=== PATIENT | female | born 1940 | race Caucasian/White ===

== ENCOUNTER 2021-11-22 10:51 | Emergency (ER) | payer MEDICARE, SELFPAY ==
--- NOTE | ~2021-11-22 | CT_ITS ---
EXAMINATION: CT brain wo con DATE: 11/22/2021 11:50 INDICATION: Head injury. TECHNIQUE: Computed tomography (CT) of the head was performed without intravenous contrast. The mA wa s adjusted according to patient size. Iterative reconstruction technique was employed. The dose-lengt h product was 605.33 mGy-cm. COMPARISON: None FINDINGS: There is no intracranial hemorrhage, acute infarction, or abnormal intracranial mass lesion . There are scattered areas of low attenuation in the cerebral white matter. The ventricles are cisco l in size. The orbits are normal. There is mild mucosal thickening in the paranasal sinuses. The mast oid air cells are normal. IMPRESSION: 1. Moderate nonspecific cerebral white matter disease, which likely represents chronic small vessel i schemic disease. Reviewed, dictated and finalized at location A. IMPRESSION: 1. Moderate nonspecific cerebral white matter disease, which likely represents chronic small vessel ischemic disease.
[2021-11-22 11:02] VITALS: BP 161/70; PULSE 79; RESP 20; TEMP 36.6; O2SAT 100
--- NOTE | 2021-11-22 11:48 | ED.FALL ---
HPI - Fall General Chief Complaint: Fall Stated Complaint: fell; hit head, no blood thinners Time Seen by Provider: 11/22/21 10:54 Source: RN notes reviewed History of Present Illness HPI Narrative: Patient presents to emergency department from home for a fall. Patient states that she was sitting down on her chair and the chair slipped out from under her causing her to fall backwards and hit the back of her head she states that she had bleeding at that time as well as pain and swelling she denies any loss of consciousness states she is not on any blood thinners she denies any other trauma or injury she denies any neck pain vision changes chest pain shortness of breath numbness or tingling in the extremities or any other symptoms of concern. Patient is unsure of last tetanus Related Data Allergies Allergy/AdvReac Type Severity Reaction Status Date / Time No Known Allergies Allergy Unknown Verified 11/22/21 11:15 Review of Systems Review of Systems: Gen.: Denies fevers or chills Eyes: Denies eye pain or visual change ENT: Denies congestion Respiratory: Denies shortness of breath or cough CV: Denies chest pain GI: Denies abdominal pain nausea, emesis Musculoskeletal: Denies back pain or muscle pain Neuro: Reports head Skin: Reports laceration Except as documented, all other systems reviewed and negative [facility] Past Medical History Medical History (Updated 11/22/21 @ 12:12 by Jonathan Powell DO) Hypertension Social History Social History (Updated 11/22/21 @ 11:50 by Jonathan Powell DO) Smoking status: Never smoker Exam Narrative: APPEARANCE: No acute distress, nontoxic, resting in bed EYES: EOMI, PERRL HEENT: Normocephalic, swelling ecchymosis over the left posterior superior scalp with laceration noted please see skin TMs clear bilaterally no facial tenderness Neck: Supple no midline tenderness palpation full range of motion without pain RESPIRATORY: No respiratory distress Clear to auscultation bilaterally with no rhonchi wheezing or rales. CARDIOVASCULAR: Regular rate and rhythm without murmurs rubs or gallops. ABDOMINAL: Soft, nontender, nondistended MUSCULOSKELETAl: Moves all extremities. No clubbing, cyanosis or edema. NEURO: Awake and alert x 4. Following commands, speech normal, no focal deficits SKIN:: Warm, dry. No rashes lesions or abrasions 2 cm vertical laceration of her left posterior scalp that is linear and deep with mild venous bleeding no foreign bodies PSYCHIATRIC: Normal affect/mood, Course Course Emergency Course: Discussed with patient results of workup and diagnosis. Discussed need for follow-up with primary care, proper use of medication, and reasons to return to the emergency department. Patient understands and agrees to current treatment plan Vital Signs Vital signs: Vital Signs Temperature 97.8 F 11/22/21 11:02 Pulse Rate 79 11/22/21 11:02 Respiratory Rate 20 11/22/21 11:02 Blood Pressure 161/70 H 11/22/21 11:02 Pulse Oximetry 100 11/22/21 11:02 Oxygen Delivery Room Air 11/22/21 11:02 Temperature 97.8 F 11/22/21 11:02 Pulse Rate 79 11/22/21 11:02 Respiratory Rate 20 11/22/21 11:02 Blood Pressure 161/70 H 11/22/21 11:02 Pulse Oximetry 100 11/22/21 11:02 Oxygen Delivery Room Air 11/22/21 11:02 Procedures Laceration Laceration 1: ====== Skin Level ====== ====== Subcutaneous Layer ====== ====== Muscle Layer ====== ====== Tendon Layer ====== Dressing: Verbal consent was obtained prior to the procedure. The wound was cleaned and irrigated with copious amounts of normal saline. Wound was explored is no foreign body seen. The wound was then closed with 3 rocío . Patient tolerated the procedure well MDM - Fall Imaging Data Radiologist's impression: ITS Impressions Head CT 11/22/21 11:53 IMPRESSION: 1. Moderate nonspecific cerebral white matter disease, which likely represents chronic small v
[2021-11-22] MEDS: TETANUS,DIPHTHERIA,AC PERTUSSIS ADULT (0.5 ML) BOOSTRIX IM (11:54)
== END 2021-11-22 12:25 | disposition home or self-care (01) ==
PROVIDERS: Emergency Provider Emergency Medicine; PCP Family Medicine
DX: S01.01XA Laceration without foreign body of scalp, initial encounter (principal); I10 Essential (primary) hypertension; W07.XXXA Fall from chair, initial encounter; Z23 Encounter for immunization
CPT/HCPCS: 12001; 70450; 90471; 90715; 99284

== ENCOUNTER 2021-12-02 07:51 | Inpatient (IN) | payer MEDICARE, SELFPAY ==
--- NOTE | ~2021-12-02 | US_ITS ---
EXAMINATION: US carotid duplex BI DATE: 12/02/2021 17:48 INDICATION: Dizziness TECHNIQUE: Grayscale, color Doppler, and pulsed Doppler images of the cervical carotid arteries were obtained. The degree of vessel stenosis is placed in one of the following categories: normal, <50%, 5 0-69%, >=70% but less than near-occlusion, near-occlusion, or total occlusion. Note that percent sten osis relative to normal distal artery lumen diameter is indirectly measured from velocity measurement s as described by Jeff, et al. Radiology 2003; 229:340-346. COMPARISON: None. FINDINGS: RIGHT: The right common carotid artery (CCA) peak systolic velocity (PSV) is 74 cm/s. The right internal car otid artery (ICA) PSV is 77 cm/s. The right ICA end-diastolic velocity (EDV) is 22 cm/s. The right IC A/CCA PSV ratio is 1.1. Grayscale and color Doppler images yield an estimate of <50% diameter reducti on from plaque in the ICA. The external carotid artery (ECA) PSV is 106 cm/s. There is antegrade flow in the right vertebral artery. LEFT: The left CCA PSV is 89 cm/s. The left ICA PSV is 64 cm/s. The left ICA EDV is 18 cm/s. The left ICA/C CA PSV ratio is 0.7. Grayscale and color Doppler images yield an estimate of <50% diameter reduction from plaque in the ICA. The ECA PSV is 76 cm/s. There is antegrade flow in the left vertebral artery. IMPRESSION: 1. <50% stenosis in the right internal carotid artery. 2. <50% stenosis in the left internal carotid artery. Reviewed, dictated and finalized at location A.
--- NOTE | ~2021-12-02 | US_ITS ---
EXAMINATION: US venous doppler [facility] DATE: 12/02/2021 17:34 INDICATION: Edema to the left lower extremity . TECHNIQUE: Grayscale images without and with compression and Doppler images of the left lower extremi ty veins were obtained. COMPARISON: None FINDINGS: The left common femoral vein, profunda femoral vein, femoral vein, popliteal vein, peroneal vein, pos terior tibial veins, and greater saphenous vein are patent. IMPRESSION: 1. Patent left lower extremity veins. No evidence of deep venous thrombosis. Reviewed, dictated and finalized at location K.
--- NOTE | ~2021-12-02 | MR_ITS ---
EXAMINATION: MR brain/brain stem wo/w con DATE: 12/02/2021 17:39 INDICATION: Dizziness TECHNIQUE: Magnetic resonance imaging (MRI) of the brain and brainstem was performed without and with 20 mL MultiHance intravenous contrast. Sequences included sagittal and axial T1-weighted SE, axial d iffusion-weighted FS EPI ASSET, axial T2*-weighted GRE, axial T2-weighted FLAIR Propeller, and axial T2-weighted Propeller. Postcontrast axial and coronal T1-weighted SE was obtained. Apparent diffusion coefficient (ADC) maps were created. COMPARISON: CT brain 12/02/2021. FINDINGS: No abnormal restricted diffusion to suggest acute ischemic infarct. No MRI evidence of hemorrhage or extra-axial collection. No suspicious foci of susceptibility to suggest prior intraparenchymal hemorr oxana. Mild chronic white matter change. Mild generalized parenchymal volume loss. Right maxillary ret ention cysts or polyps. No abnormal enhancement. Flow voids are preserved. Basilar cisterns patent. IMPRESSION: No acute intracranial process. Reviewed, dictated and finalized at location K.
--- NOTE | ~2021-12-02 | CT_ITS ---
EXAMINATION: CT brain wo con INDICATION: Vertigo and diffuse headache COMPARISON: None TECHNIQUE: Standard unenhanced head CT. The dose-length product (DLP) was 605.33 mGy-cm. The mA was a djusted according to patient size. Iterative reconstruction technique was employed. FINDINGS: There is no acute intraparenchymal hemorrhage. No evidence of mass lesion. No evidence of a cute infarction. There is mild periventricular and subcortical hypodensity probably related to small vessel ischemic disease. There is mild prominence of the sulci and ventricles related to cerebral atr ophy. Intracranial calcified cerebral atherosclerosis is noted. There are no extra-axial collections. There is no mass effect or midline shift. The orbits and soft tissues are unremarkable. There is mil d mucosal thickening of the paranasal sinuses. IMPRESSION: 1. No acute intracranial abnormality. 2. Age related findings. Reviewed, dictated and finalized at location B.
[2021-12-02 08:02] VITALS: BP 159/78; PULSE 70; RESP 20; TEMP 36.7; O2SAT 100
--- NOTE | 2021-12-02 08:08 | ECG_ITS ---
Measurements Intervals [place] Rate: 67 P: 36 ND: 175 QRS: 14 QRSD: 96 T: 15 QT: 394 QTc: 417 Interpretive Statements SINUS RHYTHM BASELINE ARTIFACT- I, III, AVR, AVL, AVF, V1-V2 NORMAL ECG NO PREVIOUS ECG AVAILABLE FOR COMPARISON Electronically Signed On 12-02-2021 8:18:49 CDT by Damon Harrell D.O.
--- NOTE | 2021-12-02 08:33 | ED.GENADULT ---
HPI - General Adult General Chief complaint: Dizziness Stated complaint: dizzy Time Seen by Provider: 12/02/21 08:21 History of Present Illness HPI narrative: 81-year-old female patient who has a history of hypothyroidism and hypertension.? The patient stated that she woke up this morning and felt very dizzy. Related Data Home Medications Medication Instructions Recorded Confirmed amlodipine 2.5 mg-benazepril 10 mg 2.5 cap PO HS 12/02/21 12/02/21 capsule levothyroxine 100 mcg tablet 100 mcg PO DAILY 12/02/21 12/02/21 omeprazole 20 mg capsule,delayed 20 mg PO DAILY 12/02/21 12/02/21 release Allergies Allergy/AdvReac Type Severity Reaction Status Date / Time No Known Allergies Allergy Unknown Verified 12/02/21 08:09 Review of Systems Review of Systems: CONSTITUTIONAL: Denies fever, chills, or sweats. EYES: Denies visual changes, redness, or discharge. ENT: Denies rhinorrhea, congestion, sore throat, or otalgia. CARDIOVASCULAR: Denies chest pain, palpitations, or edema. RESPIRATORY: Denies cough or dyspnea. GASTROINTESTINAL: Denies abdominal pain, nausea, vomiting, or diarrhea. GENITOURINARY: Denies dysuria or hematuria. SKIN: Denies rash or itching. MUSCULOSKELETAL: Denies back pain, joint pain, or myalgia. NEUROLOGIC: Denies headache, numbness, or weakness. PSYCHIATRIC: Denies anxiety or depression. [facility] Past Medical History Medical History (Updated 12/03/21 @ 14:46 by Stephy Virgen APRN) Chronic GERD Endometrial cancer Fibrocystic breast Hypertension Hypothyroidism LUI on CPAP Uterine cancer Surgical History Surgical History H/O hysterectomy for benign disease H/O lumpectomy H/O tubal ligation Family History Family History Sibling Arthritis, rheumatoid Mother Hypertension Father Osteoarthritis Alzheimer disease Sibling Cerebrovascular accident Sibling Heart disease Social History Social History (Updated 12/02/21 @ 15:26 by Iza Lau NP) Social History: The patient is and has 3 daughters. Her daughters bernice and aliyah are her power defense attorney. She is retired from the [employer]. Lifelong nonsmoker. Does not use any alcohol marijuana or illicit drugs. Code status full code Smoking status: Never smoker Alcohol intake: never Substance use: never Spiritual care concerns: No Course Vital Signs Vital signs: Vital Signs Temperature 98.1 F 12/02/21 08:02 Pulse Rate 70 12/02/21 08:02 Respiratory Rate 20 12/02/21 08:02 Blood Pressure 159/78 H 12/02/21 08:02 Pulse Oximetry 100 12/02/21 08:02 Oxygen Delivery Room Air 12/02/21 08:02 Temperature 97.2 F L 12/04/21 06:00 Pulse Rate 71 12/04/21 06:00 Respiratory Rate 18 12/04/21 06:00 Blood Pressure 130/65 12/04/21 06:00 Pulse Oximetry 98 12/04/21 09:44 Oxygen Delivery Room Air 12/04/21 09:44 Medical Decision Making MDM Narrative Medical decision making narrative: IMPRESSION: 1. Moderate nonspecific cerebral white matter disease, which likely represents chronic small vessel ischemic disease. Vital Signs Vital Signs: Vital Signs Temperature 98.1 F 12/02/21 08:02 Pulse Rate 70 12/02/21 08:02 Respiratory Rate 20 12/02/21 08:02 Blood Pressure 159/78 H 12/02/21 08:02 Pulse Oximetry 100 12/02/21 08:02 Oxygen Delivery Room Air 12/02/21 08:02 Temperature 97.2 F L 12/04/21 06:00 Pulse Rate 71 12/04/21 06:00 Respiratory Rate 18 12/04/21 06:00 Blood Pressure 130/65 12/04/21 06:00 Pulse Oximetry 98 12/04/21 09:44 Oxygen Delivery Room Air 12/04/21 09:44 Lab Data Result diagrams: 12/03/21 06:10 12/03/21 06:10 Labs: Lab Results 12/02/21 12/02/21 12/02/21 Range/Units 08:13 08:13 17:48 WBC 5.0 (4.5-10.0) K/mm3 RBC 4.65 (4.2-5.4) M/mm3 Hgb 14.1 (1
[2021-12-02 08:38] VITALS: BP 152/81; PULSE 80; RESP 20; O2SAT 100
[2021-12-02] MEDS: MECLIZINE HCL 25 MG TABLET PO (08:39)
[2021-12-02 08:46] LABS: Basophils Percent Auto 0.4 % (0.2-1.2); Eosinophils Absolute Auto 0.1 K/mm3 (0-0.3); Eosinophils Percent Auto 1.8 % (0-4.4); Hematocrit 42.4 % (37.0-47.0); Hemoglobin 14.1 g/dL (12.0-15.0); Immature Granulocyte Absolute 0.01 K/mm3 (0.00-0.031); Immature Granulocyte Percent A 0.2 % (0-0.5); Lymphocytes Absolute Auto 1.49 K/mm3 (0.9-3.2); Lymphocytes Percent Auto 29.6 % (18.3-44.2); Mean Corpuscular HGB Conc 33.3 g/dl (32-36); Mean Corpuscular Hemoglobin 30.3 pg (26-34); Mean Corpuscular Volume 91.2 fl (80-100); Monocytes Absolute Auto 0.5 K/mm3 (0.1-0.6); Monocytes Percent Auto 9.9 % (2.6-8.5); Neutrophils Absolute Auto 2.9 K/mm3 (1.3-6.7); Neutrophils Percent Auto 58.1 % (45.5-73.1); Platelet Count Result 269 k/mm3 (150-375); Red Blood Count 4.65 M/mm3 (4.2-5.4); Red Cell Distribution Width 13.9 % (11.5-14.5)
[2021-12-02 08:55] LABS: Alanine Aminotransferase 20 U/L (6-35); Albumin Level 4.3 g/dL (3.5-5.1); Alkaline Phosphatase 86 U/L (38-126); Anion Gap 13 mmol/L (8-16); Aspartate Amino Transferase 26 U/L (14-36); Bilirubin,Total 0.9 mg/dL (0.2-1.3); Blood Urea Nitrogen 17 mg/dL (7-17); Calcium 9.7 mg/dL (8.4-10.2); Carbon Dioxide 25 mmol/L (22-30); Chloride 102 mmol/L (98-107); Estimated CRCL calculation 66 ml/min; Estimated Glomerular Filt Rate > 60; Glucose 107 mg/dL (65-110); Potassium 4.2 mmol/L (3.4-5.0); Sodium 140 mmol/L (137-145)
--- NOTE | 2021-12-02 09:10 | PC.NURSE ---
pt states she is unable to lay flat for the CT scan. She states she is too dizzy. EDP made aware.
[2021-12-02] MEDS: LORazepam INJ (*CRX) 2 MG/ML VIAL 0.5 MG IV PUSH (09:21)
[2021-12-02 10:43] VITALS: PULSE 73; RESP 18; O2SAT 96
--- NOTE | 2021-12-02 13:16 | PM.IMHP ---
H&P: HPI History of Present Illness Date/Time: 12/02/21 13:16 Chief Complaint: Dizziness Narrative: This is a 81-year-old female patient who has a history of hypothyroidism and hypertension. The patient stated that she woke up this morning and felt very dizzy. She was also nauseated. The patient stated it felt like something hit her on the side of the left head and she fell back into the bed when she was attempting to get up. The patient stated that the only new medicine she took was Senokot and Dulcolax tablets for constipation. She denies having any watery stools. She stated she had small bowel movement that was solid but no loose stools. She felt nauseated but did not vomit. Her lab work was unremarkable. Head CT was read as no acute intracranial abnormality. Age-related findings. The patient was given Antivert, Ativan and IV fluids without any resolution of her symptoms. The patient stated that she attempted to sit on the side of bed in the emergency room to get up to go to the bathroom and she felt dizzy and had to lay back down. She was not able to ambulate. The patient is being admitted for observation status on the date of service of 12/02/2021. Review of Systems Review of Systems: See HPI All systems reviewed & are unremarkable except as noted in HPI and below Constitutional: Constitutional: Reports as per HPI and Reports no additional constitutional complaints Eyes: Eyes: Reports as per HPI and Reports no additional eye complaints ENT: Reports system reviewed and no additional complaints, except as documented and Reports Normal hearing present Cardiovascular: Cardiovascular: Reports no additional cardiovascular complaints Respiratory: Respiratory: Reports no additional respiratory complaints and Reports no additional respiratory complaints Gastrointestinal: Gastrointestinal: Reports as per HPI and Reports no additional gastrointestinal complaints Musculoskeletal: Musculoskeletal: Reports no additional musculoskeletal complaints Integumentary/Breasts: Skin/Breast: Reports system reviewed and no additional complaints, except as docu and Reports as per HPI Neurologic: Reports system reviewed and no additional complaints, except as documented, Reports as per HPI and Reports Normal hearing present Psychiatric: Psychiatric: Reports no additional psychiatric complaints and Reports as per HPI Endocrine: Endocrine: Reports no additional endocrine complaints Hematologic/Lymphatic: Hematologic/Lymphatic: Reports no additional hematologic/lymphatic complaints Allergic/Immunologic: Allergic/Immunologic: Reports no additional allergic/immunologic complaints [facility] Past Medical History Medical History (Updated 12/02/21 @ 15:24 by Iza Lau NP) Chronic GERD Endometrial cancer Fibrocystic breast Hypertension Hypothyroidism LUI on CPAP Uterine cancer Surgical History Surgical History H/O hysterectomy for benign disease H/O lumpectomy H/O tubal ligation Family History Family History (Updated 12/02/21 @ 15:25 by Iza Lau NP) Sibling Arthritis, rheumatoid Mother Hypertension Father Osteoarthritis Alzheimer disease Sibling Cerebrovascular accident Sibling Heart disease Social History Social History (Updated 12/02/21 @ 15:26 by Iza Lau NP) Social History: The patient is and has 3 daughters. Her daughters bernice and aliyah are her power slurry control tender. She is retired from the [employer]. Lifelong nonsmoker. Does not use any alcohol marijuana or illicit drugs. Code status full code Smoking status: Never smoker Alcohol intake: never Substance use: never Spiritual care concerns: No Meds Home Medications and Allergies Home Medications Medication Instructions Recorded Confirmed Type amlodipine 2.5 mg-benazepril 10 mg 2.5 cap PO HS 12/02/21 12/02/21 History capsule levothyroxine 100 m
[2021-12-02 14:20] VITALS: BP 132/64; PULSE 74; RESP 18; TEMP 36.9; O2SAT 100
[2021-12-02 15:13] VITALS: BMI 37.6
--- NOTE | 2021-12-02 15:26 | ADMGEN ---
This patient, Elsa Randolph, was admitted to 3 Med Surg Room 316-01. Patient/family oriented to hospital policies and general routines including ID bracelet, bed and alarms, visiting hours, pain management, procedures, bathroom and other care routines, personal items, smoking policy, room service/diet, and visiting hours. Information on how to activate the Rapid Response Team has been discussed. Patient/Family are encouraged to report perceived risks to care and to ask questions if they do not understand what they are told or what they should do.
[2021-12-02] MEDS: SODIUM CHLORIDE 0.9% IV 250 ML 75 ML IV CONT (15:48)
[2021-12-02] MEDS: MECLIZINE HCL 12.5 MG TABLET PO ×2 (16:58→21:41)
[2021-12-02] MEDS: LORazepam (*CRX) 0.5 MG TABLET PO (16:58)
[2021-12-02] MEDS: ONDANSETRON INJ 4 MG/2 ML VIAL IV PUSH (18:03)
[2021-12-02 18:07] LABS: Appearance Urine Clear (Clear); Bilirubin Urine Negative (Negative); Color Urine Yellow (Yellow); Glucose Urine UA Negative (Negative); Ketones Urine Negative (Negative); Leukocyte Esterase Ur 1+ LEU/UL (NEGATIVE); Nitrate Urine Negative (Negative); Protein Urine Negative (Negative); Specific Grav Ur 1.015 (1.001-1.035); Urobilinogen Urine 0.2 mg/dL (<2.0)
[2021-12-02 18:24] LABS: Mucus Urine Rare /lpf; RBC Urine 0-2 /hpf (0-2); Squamous Epithelial Cell Urine Rare /hpf (Few); WBC Urine 0-3 /hpf (0-3)
[2021-12-02 18:33] LABS: SARS-CoV-2 RNA PCR Negative
[2021-12-02 18:39] LABS: Add Urine Microscopic? YES; Blood Urine Trace-Intact (Negative)
[2021-12-02 20:00] VITALS: BP 145/63; PULSE 58; RESP 16; TEMP 36.4
[2021-12-02 21:54] VITALS: BP 145/63; PULSE 58; RESP 18; TEMP 36.4; O2SAT 97
[2021-12-02] MEDS: amLODIPine BESYLATE 2.5 MG TABLET BY MOUTH (22:41)
[2021-12-02] MEDS: lisinopriL 10 MG TABLET BY MOUTH (22:41)
[2021-12-03] VITALS (7 sets, daily range): BP systolic 124–149; BP diastolic 56–76; PULSE 62–79; RESP 18–20; TEMP 36.1–36.7; O2SAT 98–99
--- NOTE | 2021-12-03 | ECHO_ITS ---
Patient Info Name: Elsa Randolph Age: 81 years : 1940 Gender: Female Ht: 65 in Wt: 226 lbs BSA: 2.22 m2 HR: 64 bpm BP: 149 / 76 mmHg Heart Rhythm: Sinus Rhythm Technical Quality: Fair Exam Date: 12/03/2021 11:31 AM Exam Location: [facility] Patient Status: Outpatient Admit Date: 12/02/2021 Staff Ordering Physician: Stephy Virgen APRN [employer] Estimator: Willa Cox RDCS Attending Provider: Pravin Bruce MD Referring Physician: Promise SUAZO; Exam Type: CA echo doppler w bubble study Study Info Indications - POSSIBLE TIA R42 - Dizziness and giddiness Complete two-dimensional, color flow and Doppler transthoracic echocardiogram is performed with agitated saline. Contrast/Agitated Saline Contrast/Ag. Saline: Agitated Saline Amount: 20.00 ml Administered By: Caro Messina RDCS Existing IV Access: Yes IV Access Condition: patent with no signs of infiltration Summary 1. Left ventricular systolic function is normal, estimated at 70%. 2. E/e' 14.0 is mildly elevated. 3. No evidence for [id number]-[id number] shunt with injection of agitated saline with or without Valsalva. 4. Left ventricular chamber dimension is mildly enlarged. 5. There is moderately increased left ventricular wall thickness. 6. The left ventricular diastolic function is grade I diastolic dysfunction. 7. Global longitudinal strain is normal at -19 %. 8. Left atrial chamber dimension is moderately enlarged. 9. There is trace tricuspid valve regurgitation. 10. Mild pulmonary hypertension, estimated pulmonary arterial systolic pressure is 35 mmHg. Recommendations * Consider transesophageal echocardiogram if clinically indicated. Left Ventricle Left ventricular systolic function is normal, estimated at 70%. E/e' 14.0 is mildly elevated. Left ventricular chamber dimension is mildly enlarged. There is moderately increased left ventricular wall thickness. The left ventricular diastolic function is grade I diastolic dysfunction. Global longitudinal strain is normal at -19 %. Right Ventricle Right ventricular chamber dimension is normal. Right ventricular systolic function is normal. Left Atria Left atrial chamber dimension is moderately enlarged. Right Atria Right atrial chamber dimension is normal. Atrial Septum No evidence for [id number] shunt with injection of agitated saline with or without Valsalva. Aortic Valve The aortic valve is not well visualized. There is no aortic valve stenosis. There is no aortic valve regurgitation. There is mild aortic valve calcification. Pulmonic Valve The pulmonic valve is not well visualized. Mitral Valve The mitral valve has thickened leaflets. There is trace mitral valve regurgitation. The mitral valve annulus is severely calcified. Tricuspid Valve The tricuspid valve leaflets are normal. There is trace tricuspid valve regurgitation. Mild pulmonary hypertension, estimated pulmonary arterial systolic pressure is 35 mmHg. Pericardium/Pleural The pericardium appears normal. There is small pericardial effusion. Inferior Vena Cava Normal inferior vena cava with >50% collapse upon inspiration consistent with normal right atrial pressure, 5 mmHg. Aorta The aortic root size at the sinus of Valsalva is normal. There is mild aortic atherosclerosis. Left Ventricular Outflow Tract
[2021-12-03] MEDS: LEVOTHYROXINE SODIUM 100 MCG TABLET PO (05:56)
[2021-12-03 06:34] LABS: Basophils Percent Auto 0.4 % (0.2-1.2); Eosinophils Absolute Auto 0.1 K/mm3 (0-0.3); Eosinophils Percent Auto 2.4 % (0-4.4); Hematocrit 40.3 % (37.0-47.0); Hemoglobin 13.1 g/dL (12.0-15.0); Immature Granulocyte Absolute 0.02 K/mm3 (0.00-0.031); Immature Granulocyte Percent A 0.4 % (0-0.5); Lymphocytes Absolute Auto 2.09 K/mm3 (0.9-3.2); Lymphocytes Percent Auto 37.8 % (18.3-44.2); Mean Corpuscular HGB Conc 32.5 g/dl (32-36); Mean Corpuscular Hemoglobin 29.9 pg (26-34); Mean Platelet Volume 9.9 fl (7.4-10.4); Monocytes Absolute Auto 0.6 K/mm3 (0.1-0.6); Monocytes Percent Auto 10.7 % (2.6-8.5); Neutrophils Absolute Auto 2.7 K/mm3 (1.3-6.7); Neutrophils Percent Auto 48.3 % (45.5-73.1); Platelet Count Result 256 k/mm3 (150-375); Red Blood Count 4.38 M/mm3 (4.2-5.4); Red Cell Distribution Width 14.1 % (11.5-14.5); White Blood Count 5.5 K/mm3 (4.5-10.0)
[2021-12-03 06:39] LABS: Lactic Acid Reflex 0.8 mmol/L (0.7-2.0)
[2021-12-03 06:42] LABS: Alanine Aminotransferase 19 U/L (6-35); Albumin Level 3.5 g/dL (3.5-5.1); Alkaline Phosphatase 79 U/L (38-126); Anion Gap 6 mmol/L (8-16); Aspartate Amino Transferase 22 U/L (14-36); Bilirubin,Total 1.1 mg/dL (0.2-1.3); Blood Urea Nitrogen 14 mg/dL (7-17); CRP < 0.5 mg/dL (<1.0); Calcium 9.5 mg/dL (8.4-10.2); Carbon Dioxide 27 mmol/L (22-30); Chloride 104 mmol/L (98-107); Estimated CRCL calculation 59 ml/min; Estimated Glomerular Filt Rate > 60; Glucose 86 mg/dL (65-110); Lactate Dehydrogenase 122 U/L (120-246); Magnesium 2.3 mg/dL (1.6-2.3); Potassium 4.5 mmol/L (3.4-5.0); Sodium 137 mmol/L (137-145)
[2021-12-03] MEDS: FLUTICASONE PROPIONATE 0.05% NA SPR 16 GM BTL (*BKC) 2 SPRAY NASAL (08:07)
[2021-12-03] MEDS: MECLIZINE HCL 12.5 MG TABLET PO ×4 (08:09→20:35)
[2021-12-03] MEDS: PANTOPRAZOLE 40 MG TABLET PO (08:09)
--- NOTE | 2021-12-03 14:28 | PM.IMPN ---
Progress Note: A&P Assessment and Plan (1) Vertigo: Code(s): R42 - Dizziness and giddiness Status: Acute Assessment and Plan: -continue with meclizine -CT the brain was negative -carotid US <50% L/R ICA -MRI brain negative. -PT OT evaluation -orthostatic blood pressures - negative lying and sitting. -Saline lock IV fluid -COVID screen negative -TTE pending. (2) Hypothyroidism: Qualifiers: Hypothyroidism type: acquired Qualified Code(s): E03.9 - Hypothyroidism, unspecified Code(s): E03.9 - Hypothyroidism, unspecified Status: Acute Assessment and Plan: -TSH within normal limits -continue levothyroxine (3) Hypertension: Qualifiers: Hypertension type: primary hypertension Qualified Code(s): I10 - Essential (primary) hypertension Code(s): I10 - Essential (primary) hypertension Status: Acute Assessment and Plan: -continue with amlodipine/benazepril (4) LUI on CPAP: Code(s): G47.33 - Obstructive sleep apnea (adult) (pediatric); Z99.89 - Dependence on other enabling machines and devices Status: Acute Assessment and Plan: -the patient has brought her own CPAP machine and she may use it while she is here. (5) Chronic GERD: Code(s): K21.9 - Gastro-esophageal reflux disease without esophagitis Status: Acute Assessment and Plan: -continue with omeprazole Plan CODE STATUS: FULL CODE Disposition: home Time Spent With Patient Time with patient: 15 - 25 minutes Subjective Date/time seen: 12/03/21 14:28 Interval history: Patient is a 81-year-old female patient with hypothyroidism and hypertension.? She presented to the ED for evaluation of dizziness with associated nausea. Patient lying in bed. She denies dizziness at rest, however, she has not been ambulating to know if dizziness is gone. She denies nausea, chest pain, SOB, dysuria, abd pain, diarrhea, paresthesia, slurred speech or unilateral extremity weakness. Nursing notes reviewed and patient was unable to stand for orthostatic vitals this morning due to dizziness. Review of Systems Review of Systems: All systems reviewed & are unremarkable except as noted in HPI and below Exam Narrative: General:? No acute distress.? Non-toxic appearing. HEENT:? Normocephalic, PERRL, mild right lateral nystagmus. sclera anicteric.? moist mucous membranes. Neck:??Supple. No JVD. Respiratory:??Respirations are nonlabored.? Lung sounds clear to auscultation bilaterally without adventitious breath sounds Cardiovascular:??Regular rate and rhythm with S1-S2. No murmur, gallops, or rubs. Gastrointestinal:??Abdomen soft, nontender, and nondistended with positive bowel sounds. Skin:??Warm and dry.? Complexion normal for ethnicity.? Fair turgor Extremities:??No cyanosis, clubbing, or edema. Radial and pedal pulses? palpable and equal. grossly normal range of motion in all 4 extremities Neurological:??Alert and oriented x4,? Cranial nerves 2-12 are intact. Speech is clear and appropriate. no facial droop.?Intact finger to nose, rapid alternating movements, and heel to vo. Tongue midline.? Hand grasps and Dorsi/plantar flexion equal bilaterally.? no tremors or fasciculations Psychiatric:?? speech clear and appropriate, appropriate and regular conversation.? Good eye contact.? Neutral mood and affect.? Cooperative with examination. Objective Data Vital Signs Vital Signs: Vital Signs - 24 hr 12/02/21 20:00 12/02/21 21:54 12/02/21 20:00 Temperature 97.5 F L 97.5 F L Pulse Rate 58 L 58 L Respiratory Rate 16 18 Blood Pressure 145/63 H 145/63 H Pulse Oximetry 97 Oxygen Delivery Room Air 12/03/21 05:40 12/03/21 08:00 12/03/21 08:04 Temperature 98.0 F 97.0 F L Pulse Rate 64 62 Respiratory Rate 18 20 Blood Pressure 127/56 L 139/65 149/76 H Pulse Oximetry 98 98 Oxygen Delivery 12/03/21 14:00 Temperature 97.4 F L P
[2021-12-03] MEDS: amLODIPine BESYLATE 2.5 MG TABLET BY MOUTH (20:35)
[2021-12-03] MEDS: lisinopriL 10 MG TABLET BY MOUTH (20:35)
[2021-12-03] MEDS: SENNOSIDES 8.6 MG TABLET PO (20:36)
[2021-12-04] MEDS: LEVOTHYROXINE SODIUM 100 MCG TABLET PO (05:41)
[2021-12-04 06:00] VITALS: BP 130/65; PULSE 71; RESP 18; TEMP 36.2; O2SAT 98
[2021-12-04] MEDS: MECLIZINE HCL 12.5 MG TABLET PO (08:33)
[2021-12-04] MEDS: FLUTICASONE PROPIONATE 0.05% NA SPR 16 GM BTL (*BKC) 2 SPRAY NASAL (08:33)
[2021-12-04] MEDS: PANTOPRAZOLE 40 MG TABLET PO (08:34)
[2021-12-04 09:44] VITALS: O2SAT 98
--- NOTE | 2021-12-04 10:30 | PM.DS ---
DS: Admitting Diagnosis Discharge Date 12/04/21 1030 Admitting Diagnosis BPPV DS: Discharge Diagnosis Discharge Diagnosis (1) Vertigo: Code(s): R42 - Dizziness and giddiness Status: Acute Assessment and Plan: -continue with meclizine -CT the brain was negative -carotid US <50% L/R ICA -MRI brain negative. -PT OT evaluation -orthostatic blood pressures - negative lying and sitting. -Saline lock IV fluid -COVID screen negative -TTE EF 70%, grade 1 diastolic dysfunction with no shunting (2) Hypothyroidism: Qualifiers: Hypothyroidism type: acquired Qualified Code(s): E03.9 - Hypothyroidism, unspecified Code(s): E03.9 - Hypothyroidism, unspecified Status: Acute Assessment and Plan: -TSH within normal limits -continue levothyroxine (3) Hypertension: Qualifiers: Hypertension type: primary hypertension Qualified Code(s): I10 - Essential (primary) hypertension Code(s): I10 - Essential (primary) hypertension Status: Acute Assessment and Plan: -continue with amlodipine/benazepril (4) LUI on CPAP: Code(s): G47.33 - Obstructive sleep apnea (adult) (pediatric); Z99.89 - Dependence on other enabling machines and devices Status: Acute Assessment and Plan: -the patient has brought her own CPAP machine and she may use it while she is here. (5) Chronic GERD: Code(s): K21.9 - Gastro-esophageal reflux disease without esophagitis Status: Acute Assessment and Plan: -continue with omeprazole DS: Summary Hospital Course Hospital Course: Patient is a 81-year-old female with a past medical history of hypothyroidism, hypertension who presented to the ED for dizziness. Patient was experiencing some nausea. She denied any new medications. Head CT was done and was read as no acute intracranial abnormality. Patient was started on Ativan, IV fluids and Antivert. Symptoms have improved since admission. Patient has been able to stand and walk with no problems as well. Carotid Doppler showed less than 50% stenosis bilaterally, MRI of the brain was negative. The patient has been working with PT and OT. Orthostatic blood pressures were negative for hypotension. Lalo was performed and showed an EF of 70%. TSH was normal and blood pressure has been stable. Patient was sitting in the chair and she is ready to go home. I did express the patient educate her about the need to go to ENT for further evaluation. I did call her primary and made her an appointment for Tuesday for her to get the referral to Dr. Nair. Patient and her daughter were together and had voiced understanding. All questions were answered. Patient is stable for discharge as per labs and vital signs. Status at Discharge Functional status at discharge: independent ambulation Overall status at discharge: patient is progressing back to baseline Time Spent with Patient Time attestation: Total time spent providing and/or coordinating discharge services: 36 minutes Time spent: Greater than 30 minutes Specific discharge activities: Diagnostic testing, chart review, developing a treatment plan, education, care coordination documentation, physical exam, result review Exam Const: General: cooperative, healthy appearing, comfortable, no acute distress, well developed, alert, awake and Physically active Nutritional Appearance: average body habitus and well nourished Orientation/consciousness: oriented to person, oriented to place, oriented to time and patient oriented x3 Limitations: no limitations HENMT: Head: normal to inspection, No palpable skull fracture present, normocephalic and atraumatic Ears: hearing grossly normal bilaterally and external ears normal General nose exam: Normal external nose present Eyes: General: appearance normal, both eyes and all related structures Alignment and Position: alignment normal Periorbital: periorbital findings no
== END 2021-12-04 13:15 | disposition home or self-care (01) | DRG 149 ==
LOC: ANHED 13:23 → ANH3MEDSUR 14:11
PROVIDERS: Nurse Practitioner; Admitting Provider Family Medicine; Emergency Provider Emergency Medicine; PCP Family Medicine; Visit Provider Nurse Practitioner
DX: R42 Dizziness and giddiness (principal); Z20.822 Contact with and (suspected) exposure to COVID-19; K21.9 Gastro-esophageal reflux disease without esophagitis; E03.9 Hypothyroidism, unspecified; I10 Essential (primary) hypertension; G47.33 Obstructive sleep apnea (adult) (pediatric); Z99.89 Dependence on other enabling machines and devices
CPT/HCPCS: 36415; 70450; 70553; 80053; 81001; 83605; 83615; 83735; 84443; 85025; 86140; 93005; 93306; 93880; 93971; 96374; 96375; 97161; 97165; 97535; 99285; A9270; A9577; C9803; G0378; J2060; J2405; J7050; U0003; U0005